=== PATIENT | female | born 1970 | race Caucasian/White ===

== ENCOUNTER 2018-04-22 17:15 | Emergency (ER) | payer MEDICAID ==
[~2018-04-22] VITALS: Ht 160 cm; Wt 88.6 kg
[2018-04-22 17:33] VITALS: Ht 160 cm; Wt 88.6 kg
[2018-04-22] MEDS ORDERED: [UNRECOGNIZED DRUG - REMARK] (17:35)
[2018-04-22] MEDS ORDERED: BP PILL (17:35)
[2018-04-22] MEDS ORDERED: CHOLESTEROL MED (17:35)
[2018-04-22] MEDS ORDERED: BAYER CHEWABLE81 MG PO (17:35)
[2018-04-22] MEDS ORDERED: TORADOL10 MG PO (19:11)
[2018-04-22 20:01] VITALS: BP 107/69
== END 2018-04-22 20:02 | disposition home or self-care (01) ==
LOC: D.ER 17:15
DX: M25.521 Pain in right elbow (principal); E11.9 Type 2 diabetes mellitus without complications; I10 Essential (primary) hypertension

== ENCOUNTER 2018-07-04 15:31 | Emergency (ER) | payer MEDICAID ==
[~2018-07-04] VITALS: Ht 160 cm; Wt 102.3 kg
[~2018-07-04 15:31] MED LIST: BAYER CHEWABLE81 MG PO; BP PILL; CHOLESTEROL MED; TORADOL10 MG PO; [UNRECOGNIZED DRUG - REMARK]
[2018-07-04 16:03] VITALS: Ht 160 cm; Wt 102.3 kg
[2018-07-04] MEDS ORDERED: PREDNISONE20 MG PO (17:33)
[2018-07-04 18:20] VITALS: BP 130/88
== END 2018-07-04 18:21 | disposition home or self-care (01) ==
LOC: D.ER 15:31
DX: M79.675 Pain in left toe(s) (principal); E11.9 Type 2 diabetes mellitus without complications; I10 Essential (primary) hypertension

== ENCOUNTER 2018-09-28 17:17 | Emergency (ER) | payer MEDICAID ==
[~2018-09-28] VITALS: Ht 160 cm; Wt 100.0 kg
[~2018-09-28 17:17] MED LIST changes: +PREDNISONE20 MG PO
[2018-09-28 17:33] VITALS: BP 129/63; Ht 160 cm; Wt 100.0 kg
== END 2018-09-28 19:00 | disposition left against medical advice (07) ==
LOC: D.ER 17:17
DX: M25.532 Pain in left wrist (principal); H92.02 Otalgia, left ear

== ENCOUNTER 2020-06-23 09:16 | Emergency (ER) | payer MEDICAID ==
[~2020-06-23] VITALS: Ht 160 cm; Wt 84.1 kg
[2020-06-23 09:19] VITALS: Ht 160 cm; Wt 84.1 kg
[2020-06-23] MEDS ORDERED: KEFLEX500 MG PO (09:32)
[2020-06-23] MEDS ORDERED: CLEOCIN HCL300 MG PO (09:32)
[2020-06-23 09:55] VITALS: BP 128/77
== END 2020-06-23 09:57 | disposition home or self-care (01) ==
LOC: D.ER 09:16
DX: L03.113 Cellulitis of right upper limb (principal); W57.XXXA Bitten or stung by nonvenomous insect and other nonvenomous arthropods, initial encounter; Y93.9 Activity, unspecified; Y92.9 Unspecified place or not applicable; E11.9 Type 2 diabetes mellitus without complications; E78.5 Hyperlipidemia, unspecified; I10 Essential (primary) hypertension; Z79.84 Long term (current) use of oral hypoglycemic drugs

== ENCOUNTER 2020-08-06 13:00 | Emergency (ER) | payer MEDICAID ==
[~2020-08-06] VITALS: Ht 160 cm; Wt 84.1 kg
[~2020-08-06 13:00] MED LIST changes: -BP PILL; -CHOLESTEROL MED; +CLEOCIN HCL300 MG PO; +KEFLEX500 MG PO; +LISINOPRIL20 MG PO; +ZOCOR40 MG PO
[2020-08-06 13:21] VITALS: Ht 160 cm; Wt 84.1 kg
[2020-08-06 14:47] LABS: BASOPHILS 0.1 % (0-2); HEMATOCRIT 41.4 % (36.0-48.0); HEMOGLOBIN 13.6 g/dL (12-16); IMMATURE GRANULOCYTES 0.1 % (0-5); MCH 32.7 pg (26.0-34.0); MCHC 32.9 g/dL (31.0-37.0); MCV 99.5 fL (80.0-100.0); MEAN PLATELET VOLUME 10.5 fL (7.4-10.4); MONOCYTES 7.2 % (2-11); NEUTROPHILS 55.6 % (40-80); PLATELET COUNT 214 10x3/uL (130-400); RBC 4.16 10x6/uL (4.00-5.40); RDW 13.2 % (11.5-14.5); WBC 7.2 10x3/uL (4.8-10.8)
[2020-08-06 14:50] LABS: INR 0.84 (0.85-1.17); PROTIME 11.5 SECONDS (11.6-15.0)
[2020-08-06 14:57] LABS: ANION GAP 11.9 mmol/L (8-16); CALCIUM 9.4 mg/dL (8.5-10.1); CARBON DIOXIDE 23.4 mmol/L (21.0-32.0); CREATININE - SERUM 1.2 mg/dL (0.6-1.3); POTASSIUM - SERUM 4.3 mmol/L (3.5-5.1)
[2020-08-06 15:03] LABS: ALBUMIN 3.3 g/dL (3.4-5.0); BILIRUBIN - TOTAL 0.29 mg/dL (0.2-1.3); PROTEIN - SERUM 7.3 g/dL (6.4-8.2)
[2020-08-06] MEDS ORDERED: LOPRESSOR25 MG PO (15:32)
[2020-08-06] MEDS ORDERED: CLEOCIN HCL300 MG PO (15:39)
[2020-08-06 15:52] VITALS: BP 140/84
== END 2020-08-06 15:54 | disposition home or self-care (01) ==
LOC: D.ER 13:00
DX: L03.116 Cellulitis of left lower limb (principal); I10 Essential (primary) hypertension; E11.9 Type 2 diabetes mellitus without complications; E78.5 Hyperlipidemia, unspecified

== ENCOUNTER 2021-02-14 17:15 | Emergency (ER) | payer MEDICAID ==
[~2021-02-14] VITALS: Ht 162.6 cm; Wt 84.1 kg
[~2021-02-14 17:15] MED LIST changes: +LOPRESSOR25 MG PO
[2021-02-14 17:21] VITALS: BP 117/75; Ht 162.6 cm; Wt 84.1 kg
[2021-02-14] MEDS ORDERED: TORADOL10 MG PO (18:19)
== END 2021-02-14 18:29 | disposition home or self-care (01) ==
LOC: D.ER 17:15
DX: S80.02XA Contusion of left knee, initial encounter (principal); M11.262 Other chondrocalcinosis, left knee; E11.9 Type 2 diabetes mellitus without complications; I10 Essential (primary) hypertension; E03.9 Hypothyroidism, unspecified; E78.5 Hyperlipidemia, unspecified; W19.XXXA Unspecified fall, initial encounter; Y93.9 Activity, unspecified; Y92.9 Unspecified place or not applicable